=== PATIENT | female | born 1995 | race Two or more races ===

== ENCOUNTER 2016-08-20 21:34 | Emergency (ER) | payer SELFPAY ==
[~2016-08-20] VITALS: Ht 157.5 cm; Wt 56.7 kg
[2016-08-20] MEDS ORDERED: NKM (21:46)
[2016-08-20] MEDS ORDERED: KEFLEX500 MG ORAL (22:12)
[2016-08-20] MEDS ORDERED: BACTRIM DS TAB1 EAC1 ORAL (22:12)
--- NOTE | 2016-08-20 22:13 | Emergency Room Report ---
History of Present Illness General Chief Complaint: Pain Source: Patient Present Illness HPI Is a 21-year-old female with no past medical history patient presents with foot pain. Also with redness. No trauma. Onset for last 3 days. Itchy. She did scratchy. No fever or chills. No nausea vomiting. Pain is 8/10. Worse with walking and palpation. Allergies: Coded Allergies: No Known Allergies (Unverified , 08/20/16) Patient History Past Medical History: none Past Surgical History: none Pertinent Family History: none Social History: Denies: smoking Last Menstrual Period: July Now: No Immunizations: other Reviewed Nursing Documentation: PMH: Agreed, PSxH: Agreed Nursing Documentation-PMH Past Medical History: No Stated History Review of Systems Eye: Denies: blurred vision, eye pain ENT: Denies: ear pain, nose congestion, throat swelling Respiratory: Denies: cough, shortness of breath Cardiovascular: Denies: chest pain, palpitations Gastrointestinal: Denies: abdominal pain, diarrhea, nausea, vomiting Musculoskeletal: Reports: muscle pain, Denies: back pain, joint pain Skin: Denies: rash Neurological: Denies: headache, numbness Endocrine: Denies: increased thirst, increased urine Hematologic/Lymphatic: Denies: easy bruising All Other Systems: negative except mentioned in HPI Physical Exam Vital Signs Date Time Temp Pulse Resp B/P Pulse Ox O2 Delivery O2 Flow Rate FiO2 08/20/16 21:40 98.1 109 16 108/70 97 Room Air vitals with tachycardia Sp02 EP Interpretation: reviewed, normal General Appearance: well appearing, no apparent distress, alert Head: normocephalic, atraumatic Eyes: bilateral eye EOMI, bilateral eye PERRL ENT: hearing grossly normal, normal pharynx Neck: full range of motion, supple, no meningismus Respiratory: chest non-tender, lungs clear, normal breath sounds Cardiovascular #1: regular rate, rhythm, no murmur Gastrointestinal: normal bowel sounds, non tender, no mass, no organomegaly, no bruit, non-distended Musculoskeletal: back normal, gait/station normal, normal range of motion, other - Left foot: There is erythema to the proximal dorsal aspect of the foot. Tracking up to the ankle area. Tender to palpation. Mild edema. Warm to the touch. Pulses normal. Ankle full range of motion. There is small area of abrasion. No evidence of trauma to the webspace. Psychiatric: mood/affect normal Skin: warm/dry Medical Decision Making Diagnostic Impression: Primary Impression: Cellulitis of foot without toes, left ER Course Patient with cellulitis of the foot. Most likely MRSA. I aspirated most fluctuant area under sterile condition. There was no pus. No evidence of abscess. No evidence of necrotizing fasciitis. No foreign body. Last Vital Signs Date Time Temp Pulse Resp B/P Pulse Ox O2 Delivery O2 Flow Rate FiO2 08/20/16 21:40 98.1 109 16 108/70 97 Room Air Status: unchanged Disposition: HOME, SELF-CARE Condition: Stable Scripts Cephalexin* (KEFLEX*) 500 Mg Capsule 500 MG ORAL TID, #21 CAP 0 Refills Prov: LETITIA PARIS M.D. 08/20/16 Trimethoprim/Sulfamethoxazole 160/800* (BACTRIM DS TABLET*) 1 Each Tablet 1 TAB ORAL Q12H, #14 TAB 0 Refills Prov: LETITIA PARIS M.D. 08/20/16 Additional Instructions: Followup with your DrRebeca in 2-3 days for recheck. Return if symptom worsen or having fever. LETITIA PARIS M.D. Aug 20, 2016 22:13
[2016-08-20] MEDS ORDERED: Bactrim DS (160mg/800mg) tab ORAL ONE (22:15)
[2016-08-20 22:20] VITALS: BP 118/75
== END 2016-08-20 22:20 | disposition home or self-care (01) ==
LOC: EMR 22:00
DX: L03.116 Cellulitis of left lower limb (principal)
CPT/HCPCS: 99284